=== PATIENT | male | born 1980 | race Caucasian/White ===

== ENCOUNTER 2019-08-22 20:41 | Inpatient (IN) | payer MEDICAID ==
[~2019-08-22] VITALS: Ht 162.6 cm; Wt 100.0 kg
[2019-08-22] MEDS ORDERED: ADVIL200 MG (20:51)
[2019-08-22 21:28] LABS: BASOPHILS 0.3 % (0-2); EOSINOPHILS 3.6 % (0-7); HEMOGLOBIN 13.9 g/dL (13.5-17.5); IMMATURE GRANULOCYTES 0.3 % (0-5); LYMPHOCYTES 25.9 % (15-50); MCHC 32.3 g/dL (31.0-37.0); MCV 92.9 fL (80.0-100.0); MEAN PLATELET VOLUME 10.8 fL (7.4-10.4); MONOCYTES 7.9 % (2-11); PLATELET COUNT 300 10x3/uL (130-400); RBC 4.63 10x6/uL (4.20-6.10); RDW 14.4 % (11.5-14.5); WBC 11.5 10x3/uL (4.8-10.8)
[2019-08-22 22:00] VITALS: BP 121/79
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
[2019-08-22 23:00] VITALS: BP 127/81
--- NOTE | 2019-08-22 23:14 | NUR ---
UNTRASOUND TO BEDSIDE.
[2019-08-22 23:34] LABS: CALCIUM 8.5 mg/dL (8.5-10.1); CARBON DIOXIDE 31.5 mmol/L (21.0-32.0); CREATININE - SERUM 1.4 mg/dL (0.6-1.3); POTASSIUM - SERUM 3.5 mmol/L (3.5-5.1)
[2019-08-22 23:39] LABS: ALBUMIN 2.9 g/dL (3.4-5.0); BILIRUBIN - TOTAL 0.24 mg/dL (0.2-1.3); PROTEIN - SERUM 6.4 g/dL (6.4-8.2)
[2019-08-23] VITALS (7 sets, daily range): BP systolic 92–123; BP diastolic 43–77; Ht 162.6 cm; Wt 100.0 kg
--- NOTE | 2019-08-23 01:43 | NUR ---
PT RESTING IN BED. EYES CLOSED. NO SIGNS OF DISTRESS. BREATHING EVEN AND UNLABORED. IV SITE RT FA DRESSING CLEAN DRY AND INTACT. NO SIGNS OF INFECTION. SKIN CLEAN DRY AND ITNACT. LUNG SOUNDS CLEAR. BOWEL SOUNDS ACTIVE. NO LOWER LEG SWELLING PRESENT. WILL CONTINUE PLAN OF CARE. CALL LIGHT IN REACH. BED LOWERED AND LOCKED. BED RAILS UPX2. FAMILY AT BEDSIDE.
--- NOTE | 2019-08-23 02:02 | NUR ---
PT ARRIVED TO THE FLOOR. ALERT AND ORIENTED. NO SIGNS OF DISTRESS. BREATHING EVEN AND UNLABORED. IV SITE RT FA DRESSING CLEAN DRY AND INTACT. NO SIGNS OF INFECTION. PT STATES PAIN IN RT LEG. RT LOWER LEG SWELLING AND REDDNESS PRESENT. BOWEL SOUNDS ACTIVE. LUNG SOUNDS CLEAR. AT BEDSIDE. WILL CONTINUE PLAN OF CARE. CALL LIGHT IN REACH. BED LOWERED AND LOCKED. BED RAILS UPX2.
--- NOTE | 2019-08-23 09:00 | NUR ---
ALERT AND ORIENTED X4 WITH EDEMA 3+ NOTED TO RLE WITH PEDAL PULSES NOTED. DORSAL FLEXION NOTED WITH ASSOCIATED PAIN NOTED. LIMITED ROM OF RLE WITH MORPHINE GIVEN FOR ASSOCIATED PAIN. REDNESS NOTED TO RT LATERAL ASPECT OF RT. KNEE. LUNGS CTA AND HRRR AND ENCOURAGED TO USE CALLL LIGHT FOR Assist. .
[2019-08-23 10:29] LABS: BASOPHILS 0.4 % (0-2); HEMATOCRIT 41.8 % (42.0-54.0); HEMOGLOBIN 13.4 g/dL (13.5-17.5); IMMATURE GRANULOCYTES 0.4 % (0-5); LYMPHOCYTES 28.1 % (15-50); MCHC 32.1 g/dL (31.0-37.0); MCV 93.7 fL (80.0-100.0); MEAN PLATELET VOLUME 11.2 fL (7.4-10.4); NEUTROPHILS 53.1 % (40-80); PLATELET COUNT 304 10x3/uL (130-400); RBC 4.46 10x6/uL (4.20-6.10); RDW 14.5 % (11.5-14.5); WBC 9.6 10x3/uL (4.8-10.8)
[2019-08-23 14:57] LABS: ERYTHROCYTE SEDIMENTATION RATE 6 mm/hr (0-15)
[2019-08-23 15:04] LABS: CKMB 0.7 U/L (0.0-3.6); CREATINE KINASE 61 UL (21-232)
[2019-08-23 15:11] LABS: TROPONIN-I < 0.017 ng/mL (0.000-0.060)
--- NOTE | 2019-08-23 15:55 | NUR ---
PT RESTING IN BED WITH RIGHT LEG ELEVATED WITH PEDAL PULSES NOTED. NO FACIAL GRIMACING NOTED. BALLAST CLEANING OPERATOR DILAUDID AVAILABLE PER SETTINGS NA BICARB INFUSING AT PRESCRIBED RATE. FAMILY PRESENT WITH NO C/O NOTED AT THIS TIME.
--- NOTE | 2019-08-23 17:24 | NUR ---
PEDAL PULSES NOTED WITH NO INCREASE IN ERRYTHEMA AT SITE. DECREASE EDEMA TO RLE WITH INCREASE ROM TO PLANTER FLEXION AND BENDING OF KNEE WITHOUT PAIN OR DISCOMFORT. IVF INFUSING AT PRESCRIBED RATE WITH BELTING CUTTER INTACT.
[2019-08-23 20:24] LABS: CKMB 0.8 U/L (0.0-3.6); CREATINE KINASE 69 UL (21-232)
[2019-08-23 20:25] LABS: TROPONIN-I < 0.017 ng/mL (0.000-0.060)
--- NOTE | 2019-08-23 21:30 | NUR ---
PT IV INFULTRATED. NEW IV SITE RT UPPER ARM 20G. ATTEMPTSX1. PT TOLERATED WELL. WILL CONTINUE IV FLUIDS.
[2019-08-24 00:21] VITALS: BP 127/78
--- NOTE | 2019-08-24 02:11 | NUR ---
PT RESTING IN BED. EYES CLOSED. NO SIGNS OF DISTRESS. BREATHING EVEN AND UNLABORED. IV SITE RT UPPER ARM. DRESSING CLEAN DRY AND INTACT. NO SIGNS OF INFECTION. LUNG SOUNDS CLEAR. BOWEL SOUNDS ACTIVE. RT KNEE AND LOWER LEG SWELLING AND REDDNESS PRESENT. WILL CONTINUE PLAN OF CARE. CALL LIGHT IN REACH. BED LOWERED AND LOCKED. AT BEDSIDE. BED RAILS UPX2.
[2019-08-24 04:45] VITALS: BP 138/54
--- NOTE | 2019-08-24 05:46 | NUR ---
PT REFUSING AM LAB DRAW THIS AM. EXPLAINED THE IMPORTANCE OF WHY WE NEED LABS THIS MORNING. PT STILL REFUSED. WILL ATTEMPT AGAIN LATER.
--- NOTE | 2019-08-24 07:30 | NUR ---
PT ALERT AND ORIENTED X3 AND REINSTRUCTED ON NPO STATUS AND VERBALIZED UNDERSTANDING. INCREASED EDEMA 3+ TO RLE WITH DECREASE ROM OF EXT. PEDAL PULSES NOTED AND CAP REFILL <3 SEC. LEG ELEVATED ON PILLOW WITH DRAINAGE NOTED AT SITE TO KNEE WITH NO INCREASED REDNESS NOTED. SEROUS DRAINAGE NOTED WITH WARM COMPRESS APPLIED.
[2019-08-24 08:25] VITALS: BP 127/78
--- NOTE | 2019-08-24 08:30 | NUR ---
RETURNED TO ROOM WITH PATIENT RECEIVING BREAKFAST TRAY AND HAD CONSUMED 100% OF BREAKFAST. DR. DEL TORO PAGED TO NOTIFY AT THIS TIME
[2019-08-24 09:33] LABS: BASOPHILS 0.2 % (0-2); EOSINOPHILS 4.1 % (0-7); HEMATOCRIT 39.6 % (42.0-54.0); HEMOGLOBIN 12.6 g/dL (13.5-17.5); IMMATURE GRANULOCYTES 0.4 % (0-5); LYMPHOCYTES 25.4 % (15-50); MCH 29.6 pg (26.0-34.0); MCHC 31.8 g/dL (31.0-37.0); MCV 93.2 fL (80.0-100.0); MEAN PLATELET VOLUME 10.2 fL (7.4-10.4); MONOCYTES 9.5 % (2-11); NEUTROPHILS 60.4 % (40-80); PLATELET COUNT 275 10x3/uL (130-400); RBC 4.25 10x6/uL (4.20-6.10); RDW 14.3 % (11.5-14.5); WBC 8.3 10x3/uL (4.8-10.8)
[2019-08-24 10:05] LABS: ALBUMIN 2.7 g/dL (3.4-5.0); ALKALINE PHOSPHATASE 57 U/L (46-116); ALT (SGPT) 16 U/L (10-68); BILIRUBIN - TOTAL 0.25 mg/dL (0.2-1.3); CALC OSMOLALITY 277 mosm/kg (275-300); CALCIUM 8.1 mg/dL (8.5-10.1); CARBON DIOXIDE 32.3 mmol/L (21.0-32.0); CHLORIDE - SERUM 106 mmol/L (98-107); CKMB 0.7 U/L (0.0-3.6); CREATINE KINASE 62 UL (21-232); CREATININE - SERUM 0.9 mg/dL (0.6-1.3); GLUCOSE 130 mg/dL (74-106); MAGNESIUM - SERUM 1.6 mg/dL (1.8-2.4); PHOSPHOROUS 3.1 mg/dL (2.5-4.9); POTASSIUM - SERUM 4.3 mmol/L (3.5-5.1); PROTEIN - SERUM 5.7 g/dL (6.4-8.2); SODIUM 139 mmol/L (136-145); TROPONIN-I < 0.017 ng/mL (0.000-0.060); UREA NITROGEN 7 mg/dL (7-18); VANCOMYCIN - TROUGH 16.6 ug/mL (10.0-20.0); eGFR NON AFRICAN AMERICAN > 90 mL/min (90-120)
[2019-08-24 12:38] VITALS: BP 131/82
[2019-08-24 16:09] VITALS: BP 106/71
--- NOTE | 2019-08-24 19:15 | NUR ---
PATIENT ALERT AND ORIENTED. CALM AND COOPERATIVE WITH NURSING INSTRUCTION. HAS RIGHT UPPER EXTREMETY IV THAT IS INFUSING SODIUM BICARB AT 100 ML/HR. HAS DILAUDID STAFF NUCLEAR MEDICINE TECHNOLOGIST 0.2/08/08. STATES PAIN IS CONTROLLED AT THIS TIME. STAFF NUCLEAR MEDICINE TECHNOLOGIST SYRINGE NEAR EMPTY. CHANGED WHILE IN ROOM. ASSESSED RIGHT LOWER EXTRMETY. 2+ EDEMA FROM MID THIGH TO TOES. PULSES STRONG IN THE RIGHT FOOT AND MARKED WITH "X" FOR EASY FIND. REDNESS TO THE RIGHT SIDE OF THE RIGHT KNEE. BANDAGE TO WOUND CLEAN AND DRY AT THIS TIME. PATIENT CURRENTLY HAS LUKE WARM HEAT PACK TO AREA. REQUESTS NEW ONE WHEN ABLE. SPOKE WITH PATIENT ABOUT NPO AT MIDNIGHT STATUS. PATIENT STATES HE DID NOT THINK HE WAS HAVING SURGERY. INSTRUCTED PATIENT THAT NO CONSENTS ARE ORDERED AT THIS TIME BUT THE DIET ORDER IS IN PLACE FOR THE STRONG POSSIBILITY. ALSO THIS NURSE AND TRAFFIC CONTROL FLAGGER EDUCATED PATIENT THAT HIBBA CLEANSE WOULD TAKE PLACE WELL. DENIES FURTHER NEEDS AT THIS TIME. AFFECTED EXTREMETY ELEVATED AT THIS TIME. CALL LIGHT IN REACH. CPOC.
[2019-08-24 21:09] VITALS: BP 115/67
--- NOTE | 2019-08-25 00:05 | NUR ---
NPO STATUS INITIATED. PATIENT VERBALIZES UNDERSTANDING.
[2019-08-25 00:53] VITALS: BP 118/74
--- NOTE | 2019-08-25 02:34 | NUR ---
I have reviewed this patient and I concur with the Shift Assessment completed by the Licensed Practical Nurse today this shift.
--- NOTE | 2019-08-25 03:33 | NUR ---
PT RESTING WITH EYES CLOSED AND UNLABORED RESPIRATIONS.
--- NOTE | 2019-08-25 04:03 | NUR ---
ANSWERED PATIENT CALL LIGHT. PATIENT STATES DOCUMENT REVIEW ATTORNEY IS NOT WORKING THAT HE HAS NOT GOTTEN PAIN MEDICINE ALL NIGHT. SYRINGE WAS CHANGED FEW HOURS PRIOR AND IS DOCUMENTED IN THE EMAR. SHOWED PATIENT WHERE SYRINGE IS FILLED WITH 30ML OF DILAUDID AND THAT HE HAS 18 LEFT WHICH MEANS HE HAS USED 12 ML OF DILAUDID SINCE SYRINGE WAS CHANGED. PATIENT AGGRAVATED. STATES HE DOESN'T REMEMBER. RECALLED ENTIRE SITUATION WHERE SYRINGE WAS CHANGED AT BEGINNING OF SHIFT AND AGAIN MID SHIFT. ALMA DELIA Santo RN IN ROOM TO ASSIST WITH CHANGING OF SECOND SYRINGE. PATIENT REFUSES HIBBA CLEANSE. STATES HE DOESN'T NEED A BATH. STATES HE ISN'T GOING TO HAVE SURGERY EVEN IF HE IS INSTRUCTED TO BY DOCTOR. INFORMED PATIENT THAT LAB WOULD BE IN SHORTLY TO OBTAIN BLOOD DRAWS.
[2019-08-25 04:47] VITALS: BP 111/71
[2019-08-25 05:07] LABS: BASOPHILS 0.3 % (0-2); EOSINOPHILS 4.3 % (0-7); HEMOGLOBIN 12.4 g/dL (13.5-17.5); IMMATURE GRANULOCYTES 0.2 % (0-5); LYMPHOCYTES 31.8 % (15-50); MCH 29.5 pg (26.0-34.0); MCHC 31.8 g/dL (31.0-37.0); MCV 92.9 fL (80.0-100.0); MEAN PLATELET VOLUME 10.4 fL (7.4-10.4); MONOCYTES 10.7 % (2-11); NEUTROPHILS 52.7 % (40-80); PLATELET COUNT 293 10x3/uL (130-400); RDW 14.1 % (11.5-14.5); WBC 8.6 10x3/uL (4.8-10.8)
[2019-08-25 05:57] LABS: ALBUMIN 2.7 g/dL (3.4-5.0); ALKALINE PHOSPHATASE 58 U/L (46-116); ALT (SGPT) 16 U/L (10-68); BILIRUBIN - TOTAL 0.23 mg/dL (0.2-1.3); CALC OSMOLALITY 276 mosm/kg (275-300); CALCIUM 8.2 mg/dL (8.5-10.1); CARBON DIOXIDE 33.9 mmol/L (21.0-32.0); CHLORIDE - SERUM 103 mmol/L (98-107); CREATININE - SERUM 0.8 mg/dL (0.6-1.3); GLUCOSE 97 mg/dL (74-106); POTASSIUM - SERUM 4.8 mmol/L (3.5-5.1); PROTEIN - SERUM 5.5 g/dL (6.4-8.2); SODIUM 140 mmol/L (136-145); UREA NITROGEN 8 mg/dL (7-18); eGFR NON AFRICAN AMERICAN > 90 mL/min (90-120)
[2019-08-25 07:49] LABS: INR 0.95 (0.85-1.17); PROTIME 12.2 SECONDS (11.6-15.0)
--- NOTE | 2019-08-25 08:00 | NUR ---
ASSESSMENT PER FLOW SHEET. PT IS WITHOUT DISTRESS.NPO FOR PROCEDURE.
[2019-08-25 08:01] VITALS: BP 104/61
--- NOTE | 2019-08-25 08:18 | NUR ---
PT REFUSES PAPERS FOR ASPIRATION OF FLUID FROM RIGHT KNEE
[2019-08-25 08:40] LABS: ERYTHROCYTE SEDIMENTATION RATE 13 mm/hr (0-15)
--- NOTE | 2019-08-25 12:04 | NUR ---
DR DEL TORO TO SEE PATIENT. DEDE CALLED BECAUSE PATIENT HAS REFUSED TO SIGN FOR ASPIRATION TODAY. HE SAYS HE NEEDS MORE PAIN MEDS SO HE CAN BEND HIS KNEE.HE ALSO SAYS HE WANTS FOOD.
--- NOTE | 2019-08-25 12:42 | NUR ---
CALL TO AT [phone],NO ANSWER. MESSAGE LEFT FOR HER TO CALL [facility].
--- NOTE | 2019-08-25 12:48 | NUR ---
REFUSING TO SIGNS CONSENTS FOR SURGERY,WISHES TO SPEAK WITH DR DEL TORO AGAIN.PT ALSO STATES HIS SIGNS ALL MEDICAL PAPERS. THEN PATIENT STATES HE WANTS MEDICATION FOR NERVES. I INSTRUCTED PATIENT I COULD NOT GIVE HIM MEDICATION THAT WOULD SEDATE HIM; WHEN HE IS REFUSING SURGERY.THEN HAVE HIS SIGN PAPERS FOR PROCEDURE.
[2019-08-25 13:14] VITALS: BP 128/86
--- NOTE | 2019-08-25 15:30 | NUR ---
UNABLE TO REACH PATIENTS . HE IS REFUSING TO GO TO SURGERY UNTIL TOMORROW.
--- NOTE | 2019-08-25 15:56 | NUR ---
CALL TO KITCHEN FOR TRAY,SPOKE WITH MAGGI.SNACKS TO PATIENT UNTIL FOOD ARRIVES.
[2019-08-25 16:41] VITALS: BP 137/77
--- NOTE | 2019-08-25 17:57 | NUR ---
CALL TO KITCHEN FOR SECOND TRAY,SPOKE WITH GORAN
--- NOTE | 2019-08-25 18:42 | NUR ---
HERE TO VISIT.PT REMAINS WITHOUT DISTRESS.CONSENTS TO ROOM FOR PT AND TO GO OVER AND MAKE DECISIONS. PT WITHOUT CHANGE.CONT PLAN OF CARE
[2019-08-25 20:50] VITALS: BP 127/61
--- NOTE | 2019-08-25 22:00 | NUR ---
PT A&O X 4, AT BEDSIDE. REFUSES TO BE NPO AFTER MIDNIGHT. STATES HE CANNOT GO UNTIL THE AFTERNOON WITHOUT FOOD. STATES HE WILL JUST WAIT UNTIL SUNDAY FOR IT TO BE DONE AND HOPES BY THEN HE WONT REQUIRE THE SURGERY. INFORMED PT REMAINING NPO JUST INCASE SURGERY CAN BE DONE UNTIL HE CAN SPEAK WITH DOCTOR, PT STILL REFUSES. WILL PASS IN REPORT.
[2019-08-26 01:04] VITALS: BP 131/77
--- NOTE | 2019-08-26 01:33 | NUR ---
I have reviewed this patient and I concur with the Shift Assessment completed by the Licensed Practical Nurse today this shift.
[2019-08-26 04:42] VITALS: BP 126/64
[2019-08-26 06:03] LABS: BASOPHILS 0.3 % (0-2); EOSINOPHILS 4.3 % (0-7); HEMATOCRIT 40.5 % (42.0-54.0); HEMOGLOBIN 13.1 g/dL (13.5-17.5); IMMATURE GRANULOCYTES 0.4 % (0-5); LYMPHOCYTES 32.2 % (15-50); MCHC 32.3 g/dL (31.0-37.0); MCV 92.9 fL (80.0-100.0); MEAN PLATELET VOLUME 10.3 fL (7.4-10.4); MONOCYTES 9.7 % (2-11); NEUTROPHILS 53.1 % (40-80); PLATELET COUNT 341 10x3/uL (130-400); RBC 4.36 10x6/uL (4.20-6.10); RDW 13.9 % (11.5-14.5); WBC 9.3 10x3/uL (4.8-10.8)
[2019-08-26 06:34] LABS: ALBUMIN 3.2 g/dL (3.4-5.0); ALKALINE PHOSPHATASE 63 U/L (46-116); BILIRUBIN - TOTAL 0.19 mg/dL (0.2-1.3); CALC OSMOLALITY 275 mosm/kg (275-300); CALCIUM 8.7 mg/dL (8.5-10.1); CARBON DIOXIDE 34.6 mmol/L (21.0-32.0); CHLORIDE - SERUM 101 mmol/L (98-107); CREATININE - SERUM 0.9 mg/dL (0.6-1.3); GLUCOSE 94 mg/dL (74-106); POTASSIUM - SERUM 4.3 mmol/L (3.5-5.1); SODIUM 139 mmol/L (136-145); UREA NITROGEN 7 mg/dL (7-18); eGFR NON AFRICAN AMERICAN > 90 mL/min (90-120)
[2019-08-26 06:41] LABS: ALT (SGPT) 28 U/L (10-68); PROTEIN - SERUM 6.9 g/dL (6.4-8.2)
[2019-08-26 08:27] VITALS: BP 117/63
--- NOTE | 2019-08-26 09:37 | MORECARE ---
CASE MANAGEMENT DISCHARGE SUMMARY PATIENT: BRIDGER ZARAGOZA UNIT: [id number] ADM DATE: 08/23/19 AGE: 38 : 82 SEX: M ROOM/BED: D.2229 AUTHOR: PAUL CONTEH PHYSICIAN: REFERRING PHYSICIAN: KOFI RUGGIERO MD DATE OF SERVICE: 08/26/19 Discharge Plan Patient Name: BRIDGER ZARAGOZA [facility] [facility] 1980 Planned Disposition: Home Anticipated Discharge Date: Discharge Date: Expected LOS: Initial Reviewer: [email or web address] Initial Review Date: 08/26/2019 Generated: 08/26/19 10:37 am DCPIA - Discharge Planning Initial Assessment Updated by [email or web address]: Brittney Quiroga on 08/26/19 9:35 am * Is the patient Alert and Oriented? Yes * PCP Dr. Esquivel (Has not seen him in 2 years) * Pharmacy [facility] on [address] * Preadmission Environment Home with Family * ADLs Independent * Equipment None * List name and contact numbers for known caregivers / representatives who currently or will assist patient after discharge: Daphney Zaragoza - [facility] - [phone] (message) * Verbal permission to speak to the caregivers and representatives has been obtained from the patient. Yes * Community resources currently utilized None * Additional services required to return to the preadmission environment? No * Can the patient safely return to the preadmission environment? Yes * Has this patient been hospitalized within the prior 30 days at any hospital? No Patient Name: BRIDGER ZARAGOZA Page [phone] at 0937 All edits/amendments must be made on the electronic document DICTATION DATE: 08/26/19936 STEWARD/STEWARDESS CHIEF CARGO VESSEL: CAMMY 08/26/19936 RPT#: [id number] DC DATE: STATUS: ADM IN [facility] [address] [place] [address] END OF REPORT
--- NOTE | 2019-08-26 09:44 | MORECARE ---
CASE MANAGEMENT DISCHARGE SUMMARY PATIENT: BRIDGER ZARAGOZA UNIT: [id number] ADM DATE: 08/23/19 AGE: 38 : 82 SEX: M ROOM/BED: D.2229 AUTHOR: PAUL CONTEH PHYSICIAN: REFERRING PHYSICIAN: KOFI RUGGIERO MD DATE OF SERVICE: 08/26/19 Discharge Plan Patient Name: BRIDGER ZARAGOZA Facility: [facility]:[place] : 1980 Planned Disposition: Home Anticipated Discharge Date: Discharge Date: Expected LOS: Initial Reviewer: [email or web address] Initial Review Date: 08/26/2019 Generated: 08/26/19 10:44 am Comments DCP- Discharge Planning Updated by [email or web address]: Brittney Quiroga on 08/26/19 8:[address] Patient Name: BRIDGER ZARAGOZA Admission Status: ER Accout number: [id number] Admission Date: 08-23-2019 : 1980 Admission Diagnosis: Attending: KOFI RUGGIERO Current LOS: 3 Anticipated DC Date: Planned Disposition: Home Primary Insurance: MEDICAID [place] Discharge Planning Comments: CM met with patient to complete initial dc planning assessment. CM educated patient on the CM role and verbal consent given by patient to complete assessment. Patient lives at 's brother's house. States they sleep in their truck. States he gets paid on the and will be getting their own apartment. At discharge patient plans to return and feels this is a safe discharge. CM discussed availability of home health, rehab services, and medical equipment. Patient denies needs at this time. Will possibly need crutches if [facility], [place] for [place] signed. CM will continue to follow and will assist as needed with dc plans/needs. Cartography/Mapping Technician: Brittney Quiroga DCPIA - Discharge Planning Initial Assessment Updated by [email or web address]: Brittney Quiroga on 08/26/19 9:35 am * Is the patient Alert and Oriented? Yes * PCP Dr. Esquivel (Has not seen him in 2 years) * Pharmacy [facility] [address] * Preadmission Environment Home with Family * ADLs Independent * Equipment None * List name and contact numbers for known caregivers / representatives who currently or will assist patient after discharge: Daphney Zaragoza - spouse - [phone] (message) * Verbal permission to speak to the caregivers and representatives has been obtained from the patient. Yes * Community resources currently utilized None * Additional services required to return to the preadmission environment? No * Can the patient safely return to the preadmission environment? Yes * Has this patient been hospitalized within the prior 30 days at any hospital? No Last DP export: 08/26/19 8:37 Patient Name: BRIDGER ZARAGOZA Page [phone] at 0944 All edits/amendments must be made on the electronic document DICTATION DATE: 08/26/19943 CANNERY TENDER ENGINEER: CAMMY 08/26/19943 RPT#: [id number] DC DATE: STATUS: ADM IN [facility] [address] [place] [address] END OF REPORT
[2019-08-26 10:32] LABS: UDS - AMPHET NEGATIVE QUAL (NEGATIVE); UDS - BARB NEGATIVE QUAL (NEGATIVE); UDS - BENZO NEGATIVE QUAL (NEGATIVE); UDS - COCAINE NEGATIVE QUAL (NEGATIVE); UDS - OPIATE POSITIVE QUAL (NEGATIVE); UDS - PCP NEGATIVE QUAL (NEGATIVE); UDS - THC POSITIVE QUAL (NEGATIVE)
--- NOTE | 2019-08-26 11:49 | NUR ---
PT HAS LEFT UNIT AMBULATORY WITH .
--- NOTE | 2019-08-26 12:03 | NUR ---
BACK ON UNIT. PT IS WITHOUT DISTRESS.
[2019-08-26 12:34] VITALS: BP 123/75
--- NOTE | 2019-08-26 17:00 | NUR ---
REFUSES MRI. BACK ON UNIT. PT IS ANGRY. PTIV DCD WITH CATH INTACT PER PT REQUEST.
--- NOTE | 2019-08-26 17:06 | NUR ---
IV OUT WITH TIP INTACT FROM RIGHT AC.
--- NOTE | 2019-08-26 17:11 | NUR ---
LEFT UNIT ANGRY BEFORE SIGNING PAPER FOR AMA
[2019-08-26 17:19] VITALS: BP 115/71
--- NOTE | 2019-08-27 09:48 | MORECARE ---
CASE MANAGEMENT DISCHARGE SUMMARY PATIENT: BRIDGER ZARAGOZA UNIT: [id number] ADM DATE: 08/23/19 AGE: 38 : 82 SEX: M ROOM/BED: D.2229 AUTHOR: PAUL CONTEH PHYSICIAN: REFERRING PHYSICIAN: KOFI RUGGIERO MD DATE OF SERVICE: 08/27/19 Discharge Plan Patient Name: BRIDGER ZARAGOZA Facility: [facility]:[place] : 1980 Planned Disposition: Home Anticipated Discharge Date: Discharge Date: 08/26/2019 Expected LOS: Initial Reviewer: [email or web address] Initial Review Date: 08/26/2019 Generated: 08/27/19 10:47 am Comments DCP- Discharge Planning Updated by [email or web address]: Brittney Quiroga on 08/26/19 8:[address] Patient Name: BRIDGER ZARAGOZA Admission Status: ER Accout number: [id number] Admission Date: 08-23-2019 : 1980 Admission Diagnosis: Attending: KOFI RUGGIERO Current LOS: 3 Anticipated DC Date: Planned Disposition: Home Primary Insurance: MEDICAID [place] Discharge Planning Comments: CM met with patient to complete initial dc planning assessment. CM educated patient on the CM role and verbal consent given by patient to complete assessment. Patient lives at 's brother's house. States they sleep in their truck. States he gets paid on the and will be getting their own apartment. At discharge patient plans to return and feels this is a safe discharge. CM discussed availability of home health, rehab services, and medical equipment. Patient denies needs at this time. Will possibly need crutches if [facility], [place] for [place] signed. CM will continue to follow and will assist as needed with dc plans/needs. Laboratory Secretary: Brittney Quiroga DCPIA - Discharge Planning Initial Assessment Updated by [email or web address]: Brittney Quiroga on 08/26/19 9:35 am * Is the patient Alert and Oriented? Yes * PCP Dr. Esquivel (Has not seen him in 2 years) * Pharmacy [facility] [address] * Preadmission Environment Home with Family * ADLs Independent * Equipment None * List name and contact numbers for known caregivers / representatives who currently or will assist patient after discharge: Daphney Marcleo [facility] - [phone] (message) * Verbal permission to speak to the caregivers and representatives has been obtained from the patient. Yes * Community resources currently utilized None * Additional services required to return to the preadmission environment? No * Can the patient safely return to the preadmission environment? Yes * Has this patient been hospitalized within the prior 30 days at any hospital? No Coverage Notice Reviewer: [email or web address] Davian Quiroga Notice Issued Date-Time: 08/26/2019 9:45 Notice Type: Patient Choice Letter Notice Delivered To: Patient Relationship to Patient: Self Dairy Consultant Name: Delivery Method: HAND - Hand Delivered Rachana Days: Prior Verbal Notification: Recipient Understood Notice: Yes Recipient Signature: Yes Med Rec Note Co-signed by Attending: Coverage Notice Comment: [place] for Romulo LOPEZ export: 08/26/19 8:44 Patient Name: BRIDGER ZARAGOZA Page [phone] at 0948 All edits/amendments must be made on the electronic document DICTATION DATE: 08/27/19946 ELECTRO MECHANICAL ENGINEER: CAMMY 08/27/19946 RPT#: [id number] DC DATE:08/26/19 STATUS: DIS IN [facility] [address] [place] [address] END OF REPORT
[2019-09-01 15:09] LABS: AEROBE ID Final report (())
== END 2019-08-26 17:26 | disposition left against medical advice (07) | DRG 549 ==
LOC: D.ER 20:41 → D.MS 08-23 00:54
PROVIDERS: Family Medicine; General Practice; Internal Medicine Nephrology; Orthopaedic Surgery; ADMIT Family Medicine; ATTEND Family Medicine
DX: M00.9 Pyogenic arthritis, unspecified (principal); L03.115 Cellulitis of right lower limb; F17.203 Nicotine dependence unspecified, with withdrawal; E87.2 Acidosis; N17.9 Acute kidney failure, unspecified; E86.0 Dehydration; E83.42 Hypomagnesemia; D53.9 Nutritional anemia, unspecified